=== PATIENT | female | born 1950 | race Caucasian/White ===

== ENCOUNTER 2019-08-25 07:10 | Day surgery (SDC) | payer MEDICARE, OTHER, SELFPAY ==
--- NOTE | 2019-08-24 11:30 | HP.PCM_ITS ---
History and Physical Date of Admission: 08/25/19 Roula Ricketts 1950 ? ? REFERRING PHYSICIAN: Dr. Elda Borges ? CHIEF COMPLAINT: left breast neoplasia of uncertain behavior ? HPI: The patient is a 68 year old female presents with findings of Atypical papillary lesion by US guided left breast needle core biopsy. She is status post left breast lumpectomy in the '90s. She states that she has always had lumpy breasts. Denies nipple discharge. A sister had breast cancer, a sister had ovarian cancer, a sister had colon cancer. ? Mammograms 07/02/19? There is a 7 mm irregular equal density mass with a macrolobulated margin in the left breast at 2 o'clock middle depth. No other significant masses or calcifications are seen in the breast. US 07/02/19? There is a lobulated mass in the left breast at 2 o'clock posterior depth. ?This lobulated mass is hypoechoic with a well-defined boundary and internal echoes. ?This correlates with mammography findings. There are no abnormal axillary nodes. ? FINAL DIAGNOSIS: ?BREAST, LEFT, CORE BIOPSIES AT 2 O'CLOCK 4 CM FROM THE NIPPLE - ATYPICAL PAPILLARY LESION. ?SEE COMMENT. COMMENT: Sections demonstrate cores of a disrupted papillary lesion with focal areas of epithelial proliferation consistent with usual ductal hyperplasia as well as focal areas suspicious for atypical ductal hyperplasia. ?Rare microcalcifications are identified. ?This case was reviewed by Dr. Jason Cosby who agrees with this assessment. ? ? PAST MEDICAL HISTORY ? Fibroadenosis of breast ? ? Hypertension 09/22/2009 ? 04/16/2014: Home BP Cuff Validated. Home BP: 142/81 Office BP: 135/77 ? Osteoporosis, unspecified ? ? OSTEOPOROSIS ? Plantar wart 07/04/2006 ? Scalp lump 10/26/2017 ? lipoma versus sebaceous cyst--about 1 cm diameter; located right side of vertex ? PAST SURGICAL HISTORY ? BREAST BI WO Left 1992 ? Left lumpectomy ? COLONOSCOP W/ OR W/O BRSH SPEC ? 05/22/06 ? COLONOSCOP W/ OR W/O BRSH SPEC ? 05/13/2018 ? Colonoscopy ? COLONOSCOPY ? 04/25/13 ? few diverticula, otherwise nl. repeat in 5 yrs d/t family history ? LIGATE FALLOPIAN TUBE ? ? ? BPS ?? Current Outpatient Medications ? Glucosamine Sulfate (GLUCOSAMINE) 500 mg tab Take 1 tablet by mouth. ? alendronate (FOSAMAX) 70 mg tablet Take 1 tablet by mouth one time a week. ? lisinopril (ZESTRIL, PRINIVIL) 20 mg tablet Take 1 tablet by mouth once daily. ? Calcium-Cholecalciferol, D3, (CALCIUM 600 WITH VITAMIN D3) 600 mg(1,500mg) - 400 unit cap Take 1 Each by mouth twice daily. ? Multivitamin capsule Take 1 capsule by mouth once daily. ? ? ALLERGIES: Seasonal [Other] ? PERSONAL HISTORY: Tobacco Use ? Smoking status: Never Smoker ? Smokeless tobacco: Never Used Substance Use Topics ? Alcohol use: No ? Drug use: No ? FAMILY HISTORY ? Heart Mother ? ? IN/ unsure whether it was an aneurysm ? Stroke Maternal Grandfather ? ? Diabetes Maternal Grandfather ? ? Heart Maternal Grandmother ? ? Diabetes Maternal Grandmother ? ? Cancer Paternal Grandmother ? ? unknown ? ? REVIEW OF SYSTEMS: General - denies fevers, denies anorexia, denies weight loss Cardiovascular - denies chest pain, denies history of IN Pulmonary - denies shortness of breath, denies coughing up blood Gastrointestinal - denies abdominal pain, denies hematemesis, denies blood in stools Neurological - denies seizures, denies chronic numbness/weakness of extremities, denies chronic headaches Genitourinary - denies burning with urination, denies blood in urine Hematological - denies spontaneous/prolonged bleeding Skin - denies nonhealing skin wounds Musculoskeletal - denies chronic joint/back pain Endocrine - denies diabetes, no thyroid problems Psychological ? denies hallucinations Obstetrical - menarche?onset at age 9,?G6?P5?Ab1, first at age 24, breast feeding 4 y,?BCP denies, menopause at age 49 ? ? PHYSICAL EXAMINATION: General: ?The patient is 68 year old female, well nourished, well hydrated in no acute distress. ?The patient is oriented to time, place, and person. VITALS:?Pulse 107, temperature 98 ?F, weight 60.1 kg (132 lb 9.6 oz), SpO2 97 %.?Body mass index is 22.5 kg/m?.? Head ? Normocephalic. EOM intact with sclera clear and no icterus noted.?Wearing glasses.??Mouth with mucus membranes moist. Neck - supple with no jugular venous distention noted. Trachea is midline. No carotid bruits noted. No thyroid enlargement or thyroid nodules detected. No masses noted. Chest/breast ? no asymmetry o breasts noted, no suspicious skin lesions noted, no nipple discharge and both nipples everted, no breast masses noted Lungs ? clear to auscultation. Normal breath sounds . No rales/rhonchi/wheezing noted. No labored breathing noted, such as retractions. No cough heard. Heart ? normal S1 and S2 auscultated. No rubs/clicks/murmurs noted. Regular rate. Abdomen ? soft and benign. Normal bowel sounds. No abdominal bruits noted. No distention?noted Extremities ? no calf tenderness noted. No pitting edema noted.. Skin ? normal skin integrity. Lymph ? no cervical adenopathy detected, no supraclavicular adenopathy detected, no axillary adenopathy detected Neurological ?gait normal, no focal deficits noted. Psych ? calm and appropriate ? ? IMPRESSION: atypical papillary lesion by needle core biopsy of left breast ? PLAN: I have discussed the above with the patient. I have offered wide local excision breast biopsy via wire localization I have explained the procedure to the patient. I have counseled the patient as to the risks of the procedure, including but not limited to: infection, bleeding, injury to any blood vessels/nerves, scar tissue, wound infections, complications of anesthesia, etc. ? the patient understands. The patient wishes to proceed. I have answered all questions to the patient?s satisfaction and the patient has no further questions. ? . 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 ? Gretchen Toledo MD
--- NOTE | 2019-08-25 | IMM_PTH ---
PATIENT: MAGEN RICH LOC: [facility] [place][id number] AGE/SX: 68/F ROOM: RE08/25/[address]: Dr. Gretchen Toledo MD : 1950 BED: DIS: 08/25/2019 SPEC #: [id number] RECD: 08/27/19 12:21 STATUS: RONNY REQ #: [id number] HUMBERTO: 08/25/19 00:[address]: Gretchen Toledo DEPT: IMMUNOHISTOCHEMISTRY RECD BY: Hailey Sue ENTERED: 08/27/19 12:23 SP TYPE: IMMUNO OTHR DR: Dr. Elda Borges MD Tissues: Left breast, NOS Procedures: CALPONIN-1 (add) CK8 (add) E-CAD (add) HER2 DORIS (add) CT (add) P40 (add) ER (initial) PHYSICIAN & INSTITUTION [place] [phone] SPECIMEN INFORMATION: Tissue Source: Left breast biopsy Clinical Info: Left breast neoplasm Specimen Number: [id number] #1, 2, 5, 6 & 8 CPT code: 60502, 03662 x7, 44955 x3 METHODOLOGY: Deparaffinized sections of prefer/formalin-fixed tissue or PAP/DQ stained slides are incubated with monoclonal/polyclonal antibodies/oligonucleotide probes. Localization is made via biotin free immunoperoxidase method. Appropriate controls are performed and reacted as expected. Results on target cell population are indicated in the following table: RESULTS: ANTIBODY / CLONE RESULT Block 1 E-Cad (ECH-6) positive * CK8 (02pndjT37) positive Calponin-1 (WH044Y) positive P40 (BC28) positive *?Negative in the area of atypical lobular hyperplasia. MORPHOMETRIC ANALYSIS ER (clone 6F11) >95%, strong intensity CT (clone 16/1E2) >95%, strong intensity Her-2Neu (clone CB11) 1+ negative Block 2 E-Cad (ECH-6) negative Block 5 E-Cad (ECH-6) negative Block 6 E-Cad (ECH-6) negative Block 8 E-Cad (ECH-6) negative The prognostic test for HER2 is performed on formalin-fixed paraffin embedded tissue. A 3+ (positive) staining pattern is defined as intense, homogeneous, complete, circumferential membranous staining in >10% of contiguous tumor cells. A similar weak (2+) staining pattern is interpreted as equivocal. JERRICA follow-up testing is recommended for all equivocal cases. Positivity/negativity for ER/CT is reported if > or < 1% of the tumor cells are immuno- reactive, respectively. The ASCO/CAP criteria is used for scoring. Reference: Journal of Clinical Oncology, 2013; 31:7197-9272 & 2010; 16:6707-4864. Duration of fixation: 10 Hrs; Sample Adequate: Yes. These assays have not been validated on decalcified tissues. Results should be interpreted with caution given the likelihood of false negativity on decalcified specimens. These tests were developed and their performance characteristics determined by [facility]. They may not have been cleared or approved by the U.S. Food and Drug Administration. The FDA has determined that such clearance or approval is not necessary. The above immunohistochemical/dualISH markers are ordered and reviewed by the Pathologist. 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 Multifocal atypical lobular hyperplasia. SJ:keenan 08/28/19
--- NOTE | 2019-08-25 07:30 | BI_ITS ---
SURGICAL BREAST SPECIMEN RADIOGRAPH CLINICAL: Document presence of tissue clip marker in biopsy specimen. FINDINGS: Specimen shows presence of tissue clip marker. Electronically Signed: Kevin Mcdonough, at 13:53 EST , Service support , BI/Breast Biopsy Specimen
[2019-08-25 07:40] VITALS: BP 171/84; PULSE 92; RESP 18; TEMP 36.4; O2SAT 96; BMI 23.4
[2019-08-25] MEDS: Lactated Ringers 1,000 ML 100 ML IV (07:46)
[2019-08-25] MEDS: Cefazolin 2 GM in 0.9% Normal Saline 100 ML IV (08:56)
--- NOTE | 2019-08-25 09:00 | BRBX_PTH ---
PATIENT: MAGEN RICH LOC: [facility] – [place] U#:[id number] AGE/SX: 68/F ROOM: RE08/25/[address]: Dr. Gretchen Toledo MD : 1950 BED: DIS: 08/25/2019 SPEC #: [id number] RECD: 08/25/19 09:38 STATUS: RONNY REQ #: [id number] HUMBERTO: 08/25/19 09:[address]: Gretchen Toledo DEPT: SURGICAL PATHOLOGY RECD BY: Denzel Paula ENTERED: 08/25/19 11:21 SP TYPE: BREAST BX OTHR DR: Dr. 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 Fibrocystic changes and intraductal hyperplasia with multifocal atypia. Multifocal atypical lobular hyperplasia. Frequent microcalcifications. See cancer summary below. SJ:keenan 08/28/19 BREAST CARCINOMA SUMMARY: Procedure - excision Specimen laterality - left Tumor site - 2 o'clock 4 cm from the nipple (as per biopsy from [facility]) Size (extent of DCIS) - 0.5 x 0.4 cm (measured microscopically) Histologic type - solid papillary carcinoma (in situ carcinoma) and ductal carcinoma in situ (usual type). Architectural pattern - cribriform and solid papillary carcinoma. Nuclear grade - grade 1 (low) Necrosis - present, focal (single cell necrosis) Margin - uninvolved by ductal carcinoma in situ. Distance from closest margin - ~0.2 cm Regional lymph nodes - no node submitted or found. Distant metastasis - not applicable Additional pathologic findings - fibrocystic changes and intraductal hyperplasia with multifocal atypia. - Multifocal atypical lobular hyperplasia. Ancillary Studies ([id number]): ER - positive (<95%, strong intensity) SD - positive (<95%, strong intensity) Her2 latonia (IHC) - negative (1+) Microcalcification - present in DCIS, solid papillary carcinoma and in non-neoplastic tissue. Clinical history - please make reference to previous specimen from [facility], [id number], breast, left, core biopsies at 2 o'clock 4 cm from the nipple with diagnosis of atypical papillary lesion. Radiologic findings - not available Pathologic Staging: pTis(DCIS) pNx Mx The above summary is in compliance with [employer] [place] [employer] (CAP) Cancer Protocols Checklist and [place] Joint Committee on Cancer (AJCC), Staging Manual, 8th Ed. COMMENT Immunohistochemistry ([id number]) supports the above diagnosis. Case has been reviewed in consultation with Dr. Barajas who concurs with the above diagnosis. IDC:AM MICROSCOPIC DESCRIPTION Slides are reviewed. GROSS DESCRIPTION Received in fixative is one container labeled with the patient's name and designated left breast. The specimen consists of an irregular fragment of lamb-yellow fibrofatty tissue containing a wire. The specimen measures 4.5 x 4 x 2 cm. No orientation is provided. The specimen weighs 14 gm. The surface with wire is inked in yellow ink. The remainder of the specimen is inked in black ink. Serial sections reveal yellow-lamb cut surfaces. A metallic tracer wire is identified. No distinct mass lesion is seen. The specimen is serially sectioned and totally submitted in eight cassettes after additional fixation. / AM:keenan 08/25/19 TC:0 CPT: 51073
--- NOTE | 2019-08-25 09:39 | PCM.OPRPT ---
Report of Operation Date of Procedure: 08/25/19 Pre-Operative Diagnosis: left breast neoplasia of uncertain behavior - atypical papillary lesion by needle core biopsy Post-Operative Diagnosis: same Surgery/Procedure Performed:: left breast biopsy via wire localization Description of Surgical Findings:: lateral lesion of left breast - posterior Type of Anesthesia:: Local MAC Anesthesiologist: Lyle Mueller Specimen's removed: left breast tissue Estimated Blood Loss (mL): < 5 ml Fluids Replaced: 300 ml RL Description of Procedure: After informed consent was given, the patient was brought into the Breast Stereotactic Radiology suite, Appropriate time out protocol was followed. She was then placed in the prone position on the [place] stereotactic table. The patient?s left breast was placed in the opening at the head of the table. A coin machine collector compression mammogram was then obtained in the lateral view. The marker clip that was previously placed was identified. Stereo pictures of the lesion were then taken for XYZ coordinates. The Kopans needle was then positioned where it would be entering into the patient?s breast. The skin at this site was then cleansed with a surgical skin preparation. The skin and subcutaneous tissues at this site were then infiltrated with 1% xylocaine. The Kopans needle was then positioned into the patient?s breast at the proper coordinates of depth. A coin machine collector film was obtained which revealed the wire in proper position. The patient was then placed in the supine position and the wire was taped into place. A unilateral mammogram in the CC and MLO view were then taken for use in the OR. The patient tolerated this portion of the procedure well and was brought to the AC awaiting surgery in the OR. The patient was then brought to the Operating Room. Appropriate time out protocol was followed. She was then placed on the operating table in the supine position. A wire had already been placed in the stereotactic biopsy room in the radiology department as described above. The left breast with the wire in placed was then prepped with a sterile surgical skin preparation and sterile surgical drapes were placed. The skin and subcutaneous tissues at the site of the breast lesion was then infiltrated with 1% xylocaine with epinephrine. A transverse skin incision was then made with a 15 blade scalpel in the lateral aspect of the left breast. It was carried down through to the subcutaneous tissues. Hemostasis was controlled with electrocautery. The wire was then palpated out. The breast tissue surrounding the wire was then carefully palpated out and from the surrounding tissues using electrocautery. The breast tissue, once from the breast, was then forwarded to the radiology department, where a specimen mammogram revealed that the marker clip was within the specimen. The breast tissue was then forwarded to pathology for analysis. The wound cavity was carefully examined. No further suspicious tissue was palpated or visualized. Hemostasis was carefully controlled with electrocautery. The subdermal tissues were then approximated with vicryl suture. The incision was then reapproximated close using running monocryl suture. Cavilon and steristrips were then placed to reinforce the skin closure. A sterile dressing was then applied. The patient was then brought to the Recovery Room in stable condition. - Complications none noted - Admit VTE Documentation VTE Present on Admission: Yes VTE Mechan Device Prophylaxis: SCD's
[2019-08-25 09:45] VITALS: BP 139/89; BP 171/84; PULSE 77; RESP 16; TEMP 37.1; O2SAT 98
[2019-08-25 09:50] VITALS: BP 132/85; BP 171/84; PULSE 78; RESP 18; O2SAT 97
--- NOTE | 2019-08-25 09:51 | DCINST_ITS ---
Discharge Diet: No Restrictions Discharge Activity: Return to Normal Activity, May not drive while taking narcotic pain medications. Call your doctor if your incision/area has: Continuous Slow Oozing, Foul Smelling Discharge Call your doctor if you observe: Fever of 101 or Higher Additional Dressing/Incision Instructions:: Leave dressings in place. May get wet in shower. Do not soak - no tub baths/swimming. Wear supportive bra during the day. May apply ice packs to area for comfort Allergies/Adverse Reactions: Allergies No Known Allergies Allergy (Verified 08/18/19 11:11) Medications to take at Discharge Alendronate Sodium [Fosamax] 70 mg PO WE 08/18/19 Calcium (Elemental) [Os-Khai 500] 500 mg PO DAILY@0800 08/18/19 Gluc Fay/Chondro Fay A/Vit C/Mn [Glucosamine-Chondroitin Sftgl] 1 ea PO DAILY 08/18/19 Lisinopril [Zestril] 20 mg PO DAILY 08/18/19 Multivitamin with Minerals [Multiple Vitamin] 1 ea PO DAILY 08/18/19 Hydrocodone Bitart/Apap 5-325 [[place] 5MG-325MG] 1 tab PO Q12H PRN PRN 3 Days #5 tab 08/25/19 The following prescriptions were given: Hydrocodone Bitart/Apap 5-325 [[place] 5MG-325MG] 1 tab PO Q12H PRN PRN 3 Days #5 tab PRN Reason: Pain Transmission Status: Received by [facility] Primary Care Physician: Elda Borges MD [Primary Care Provider] - Test Results: Test results from this visit will be discussed in further detail at your follow- up appointment, if applicable. Please Follow Up With: Gretchen Toledo MD - call When: to be seen in 7-10 days, please call for date and time, thank you
[2019-08-25 09:55] VITALS: BP 141/87; BP 171/84; PULSE 75; RESP 18; O2SAT 96
[2019-08-25 10:00] VITALS: BP 147/81; BP 171/84; PULSE 74; RESP 18; TEMP 36.9; O2SAT 94
[2019-08-25 10:27] VITALS: BP 171/84
== END 2019-08-25 10:34 | disposition home or self-care (01) ==
LOC: SDC 07:14 → AC 07:16
PROVIDERS: Family Provider Internal Medicine; PCP Internal Medicine; Referring Provider Surgery; Visit Provider Surgery
PROC: (CPT 19125; principal; 2019-08-25 08:45)
DX: D05.12 Intraductal carcinoma in situ of left breast (principal); I10 Essential (primary) hypertension; M81.0 Age-related osteoporosis without current pathological fracture; Z80.3 Family history of malignant neoplasm of breast
CPT/HCPCS: 19125; 19281; 76098; 88305; 88307; 88341; 88342; J7120

== ENCOUNTER 2021-01-13 14:05 | Emergency (ER) | payer MEDICARE, OTHER, SELFPAY ==
[2021-01-13 14:06] VITALS: BP 183/91; PULSE 83; RESP 18; TEMP 36.4; O2SAT 94; BMI 23.6
--- NOTE | 2021-01-13 14:23 | RAD_ITS ---
STUDY: X-RAY - RIGHT KNEE REASON FOR EXAM: Female, 70 years old. Injury TECHNIQUE: 2 view(s) of the knee. COMPARISON: None. FINDINGS: Normal visualized distal femur. Normal visualized proximal tibia and fibula. Normal proximal tibiofibular articulation. Normal medial femorotibial compartment. Normal lateral femorotibial compartment. Normal patellofemoral articulation. Prepatellar soft tissue laceration. No radiopaque foreign body is seen. RAD/Knee 1 or 2 Views IMPRESSION: Prepatellar soft tissue laceration. Electronically Signed: Kevin Mcdonough MD at 14:53 EDT , Service support ,
--- NOTE | 2021-01-13 14:24 | EDS_ITS ---
HPI History of Present Illness Chief Complaint: Fall Informant: patient and spouse/S.O. Narrative Narrative: This was 2018. She denies any other [id number] female states that she sustained a mechanical fall when she tripped and fell coming down on her right knee. She notes a laceration. She states that she landed in some [employer] [facility] Medical History Cancer Hypertension Home Medications alendronate 70 mg PO WE 08/18/19 [History Last Taken Unknown] calcium carbonate 500 mg PO DAILY@0800 08/18/19 [History Last Taken Unknown] dtvyqftmsrl-fqbuqyusx-nkk C-Mn 1 ea PO DAILY 08/18/19 [History Last Taken Unknown] lisinopril 20 mg PO DAILY 08/18/19 [History Last Taken 08/25/19 06:00] multivitamin with minerals 1 ea PO DAILY 08/18/19 [History Last Taken Unknown] Allergy/AdvReac Type Severity Reaction Status Date / Time No Known Allergies Allergy Verified 01/13/21 14:17 Surgical History History of lumpectomy Social History (Updated 01/13/21 @ 14:[address] Nino Stoo DO) Smoking Status: Never smoker substance use type: does not use ROS ROS ED Constitutional Constitutional ED: Denies chills or weight loss Eyes Eyes: Denies change in vision or diplopia ENT ENT ED: Denies ear pain, rhinorrhea or sore throat Cardiovascular Cardiovascular: Denies chest pain, orthopnea, palpitations or racing heartbeat Respiratory/Chest Respiratory/Chest: Denies cough, dyspnea or orthopnea Gastrointestinal Gastrointestinal: Denies abdominal pain, diarrhea, nausea or vomiting Genitourinary Genitourinary ED: Denies dysuria, hematuria or urinary frequency Musculoskeletal Musculoskeletal: Denies arthralgias or myalgias Integumentary Reports other Details: Right knee laceration ; Denies abscess or rash Neurologic Neurologic: Denies headache(s) or weakness Psychiatric Psychiatric: Denies anxiety, depression, suicidal ideation or suicidal thoughts Endocrine Endocrinology: Denies polydipsia, polyphagia or polyuria Allergic/Immunologic Allergic/Immunologic ED: Denies mouth swelling, tongue swelling or urticaria EXAM Physical Exam Const Vital Signs: 01/13/21 14:06 Temperature 97.6 F L Temperature Source Temporal Pulse Rate 83 Respiratory Rate 18 Blood Pressure 183/91 H Blood Pressure Mean 121 Pulse Ox 94 Oxygen Delivery Method Room Air Positive well nourished and well developed General Appearance ED: well developed HEENT Reports normocephalic, head/scalp atraumatic and moist mucous membranes Eyes PERRL and EOMs intact bilaterally Neck no lymphadenopathy, supple and no JVD Resp normal respiratory effort and clear to auscultation bilaterally Cardio regular rate, regular rhythm and no murmurs GI normal to inspection, nondistended, normoactive bowel sounds and non-tender Palpation: soft Back/Spine no CVA tenderness and normal ROM Extremity Extremity Narrative: There is a 4 cm gaping laceration to the inferior aspect of the patella. Tensor mechanism is intact. The wound is contaminated with mulch. General Extremety ED: Negative for edema General Extremity: Negative for edema Neuro oriented x3 and CN's II-XII intact bilaterally Sensorium / Orientation: alert Motor Exam: strength 5/5 throughout Psych mental status grossly normal Mood & Affect: Negative for depressed or tearful Skin no rashes or lesions noted and no wounds MDM MDM MDM Narrative Medical decision making narrative: My interpretation of the plain films of the x-rays of the knee is no acute fracture. Wound was locally anesthetized using 1% lidocaine. After adequate anesthesia attention was turned to debridement. The wound is heavily contaminated with mulch. Large amount was removed. I could visualize the patellar tendon but I do not see any laceration as I take it through with range of motion.The wound was irrigated with 500 cc of sterile saline under pressure. It was scrubbed with Shur-Clens and Betadine. Then another 500 cc of sterile saline was used to clean that. A total of 9 simple interrupted 3-0 Ethilon sutures were used to close the wound. Patient will be placed on Keflex. We will Mao wrap the knee to limit range of motion. Follow-up 10 days for suture removal. Patient was aware that there will be a small amount of mulch that we are unable to remove left in the wound. Radiography Diagnostic Testing: Radiology Impression Knee X-Ray 01/13/21 14:23 IMPRESSION: Prepatellar soft tissue laceration. Electronically Signed: Kevin Mcdonough MD at 14:53 EDT , Service support , Discharge Plan Triage Chief Complaint: Fall ED Provider: Nino Soto Dx/Rx/DC Orders Clinical Impression: Laceration of knee, right, Contusion of knee, right Instructions: ED Laceration: All Closures Prescriptions: No Action lisinopril 20 MG tablet 20 mg PO DAILY RF: 0 alendronate 70 MG tablet 70 mg PO WE RF: 0 calcium carbonate 500 MG tablet 500 mg PO DAILY@0800 RF: 0 multivitamin with minerals 1 EACH tablet 1 ea PO DAILY RF: 0 wmuptbkyfsj-wxomhgjfe-vlp C-Mn 1 EACH capsule 1 ea PO DAILY RF: 0 Primary Care Provider: Elda Borges Referrals: Elda Broges MD [Primary Care Provider] - 10 Day for suture removal Disposition Disposition: Home, self care
[2021-01-13] MEDS: Lidocaine 1% (20 ml mdv) 20 ML Vial INFILT (16:01)
== END 2021-01-13 16:03 | disposition home or self-care (01) ==
PROVIDERS: Emergency Provider Emergency Medicine; PCP Internal Medicine
DX: S81.011A Laceration without foreign body, right knee, initial encounter (principal); S80.01XA Contusion of right knee, initial encounter; W01.0XXA Fall on same level from slipping, tripping and stumbling without subsequent striking against object, initial encounter
CPT/HCPCS: 12002; 73560; 99283

== ENCOUNTER 2021-06-01 15:44 | Emergency (ER) | payer MEDICARE, OTHER, SELFPAY ==
[2021-06-01 15:45] VITALS: BP 176/101; PULSE 84; RESP 15; TEMP 36.3; O2SAT 97; BMI 23.4
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
--- NOTE | 2021-06-01 16:20 | RAD_ITS ---
STUDY: X-RAY - LEFT SHOULDER REASON FOR EXAM: Female, 70 years old. Acute pain after a fall TECHNIQUE: 3 view(s) of the shoulder. COMPARISON: None. FINDINGS: There is mild degenerative arthrosis of the glenohumeral articulation. There is degenerative arthrosis of the acromioclavicular joint without inferior osseous spur formation. Normal acromion. There is a nondisplaced fracture in the distal clavicle with soft tissue swelling Normal humeral head and visualized proximal humerus. The soft tissue structures are unremarkable. Normal visualized pulmonary apex. RAD/Shoulder min 2 Views IMPRESSION: Acute nondisplaced fracture of the distal clavicle with soft tissue swelling Mild glenohumeral and acromioclavicular joint arthrosis Electronically Signed: Jin Mcfarlane MD at 16:33 EDT , Service support ,
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
[2021-06-01 16:53] LABS: Mean Corp Hgb Conc 33.3 g/dL (32-36); Mean Corpuscular Hgb 30.8 pg (27.0-32.0); Mean Corpuscular Volume 92.3 fL (81-99); Mean Platelet Vol. 9.6 fl (6.2-12.0); Platelet Count 197 K/mm3 (150-450); RBC Distribution Width CV 13.5 % (11.6-14.6); RBC Distribution Width SD 46.1 fl (35.1-43.9); Red Blood Count 4.55 M/mm3 (4.2-5.4); White Blood Count 9.6 K/mm3 (4.4-11.0)
[2021-06-01 17:03] VITALS: BP 181/97; PULSE 91; RESP 20; O2SAT 95
[2021-06-01 17:04] LABS: Prothrombin Time (Protime)PT. 12.2 SECONDS (11.7-14.9)
[2021-06-01 17:05] LABS: Anion Gap 6 (5-15); BUN 26 mg/dL (7-18); BUN/Creat Ratio 29.5 RATIO (10-20); Calcium,Total 8.9 mg/dL (8.5-10.1); Chloride 107 mmol/L (98-107); Creatinine, Serum 0.88 mg/dL (0.55-1.02); EST Glomerular Filtration Rate 67 mL/min (>60); Est Glom Filt Rate - Afr Amer 81 mL/min (>60); Glucose 182 mg/dL (74-106); Partial Thromboplast Time 22.1 Seconds (24.1-36.2); Potassium 3.7 mmol/L (3.5-5.1); Sodium Level 141 mmol/L (136-145)
[2021-06-01] MEDS: Morphine 4 MG/ML Syringe IV (17:15)
[2021-06-01] MEDS: Ondansetron 4 MG/2 ML Vial IV (17:15)
[2021-06-01 17:19] VITALS: BP 181/97; PULSE 91; RESP 20; O2SAT 95
== END 2021-06-01 17:22 | disposition short-term general hospital (02) ==
PROVIDERS: Emergency Provider Emergency Medicine; PCP Internal Medicine
DX: S06.5X0A Traumatic subdural hemorrhage without loss of consciousness, initial encounter (principal); S42.035A Nondisplaced fracture of lateral end of left clavicle, initial encounter for closed fracture; S50.312A Abrasion of left elbow, initial encounter; S50.812A Abrasion of left forearm, initial encounter; V19.88XA Pedal cyclist (driver) (passenger) injured in other specified transport accidents, initial encounter; Y93.55 Activity, bike riding; Y92.9 Unspecified place or not applicable; Y99.8 Other external cause status; I10 Essential (primary) hypertension; Z79.899 Other long term (current) drug therapy
CPT/HCPCS: 70450; 72125; 73030; 80048; 85027; 85610; 85730; 87426; 96374; 96375; 99285; A4216; J2405